=== PATIENT | female | born 1965 | race Caucasian/White ===

== ENCOUNTER → 2021-11-28 13:57 | Outpatient (BNVA) | payer SELFPAY | PROVIDERS: Visit Provider Family Medicine Adult Medicine | DX: R53.82 Chronic fatigue, unspecified (principal); R53.81 Other malaise; Z85.71 Personal history of Hodgkin lymphoma; Z85.3 Personal history of malignant neoplasm of breast | CPT/HCPCS: 80053; 83036; 84443; 85025 ==

== ENCOUNTER 2024-01-08 17:16 | Emergency (ER) | payer OTHER, MEDICAID, SELFPAY ==
[2024-01-08 17:38] VITALS: BP 128/81; PULSE 105; RESP 18; TEMP 36.8; O2SAT 98
[2024-01-08 17:58] VITALS: BP 128/81; PULSE 99; O2SAT 99
--- NOTE | 2024-01-08 18:06 | CTR_ITS ---
PROCEDURE INFORMATION: Exam: CT Cervical Spine Without Contrast Exam date and time: 01/08/2024 6:35 PM Age: 58 years old Clinical indication: Injury or trauma; Other: Fall, hit back of head, dizziness; Additional info: Trauma/fall TECHNIQUE: Imaging protocol: Computed tomography of the cervical spine without contrast. Radiation optimization: All CT scans at this facility use at least one of these dose optimization techniques: automated exposure control; mA and/or kV adjustment per patient size (includes targeted exams where dose is matched to clinical indication); or iterative reconstruction. COMPARISON: CT head wo con* [id number] 01/08/2024 6:35 PM RADIATION DOSE METRICS: Total DLP (mGy-cm): 362.2 FINDINGS: Bones/joints: Straightening of the normal cervical lordosis. Alignment is otherwise intact. Vertebral body heights are well-maintained. No evidence of acute fracture. Mild multilevel degenerative changes of the cervical spine worst at C4-C5. Lungs: Moderate biapical fibrotic changes. Thyroid: Multinodular right thyroid gland with low-density nodules measuring up to 1.5 cm. Soft tissues: Unremarkable. CT/CT cervical spin wo con* [id number] IMPRESSION: 1. No evidence of acute fracture. 2. Multinodular right thyroid gland with low-density nodules measuring up to 1.5 cm. Recommend nonemergent follow-up thyroid ultrasound. COMMENTS: Consistent with the [employer]'s Incidental Findings Committee white paper (J Am Anjum Radiol 2015): In patients aged 35 years and older with an incidental thyroid nodule equal to or greater than 1.[address], MRI or extrathyroidal US, further evaluation with dedicated thyroid US is recommended for patients with normal life expectancy and without comorbidities. For smaller nodules without suspicious features, no further evaluation or follow up is recommended.
--- NOTE | 2024-01-08 18:06 | CTR_ITS ---
PROCEDURE INFORMATION: Exam: CT Head Without Contrast Exam date and time: 01/08/2024 6:35 PM Age: 58 years old Clinical indication: Injury or trauma; Other: Fall, hit head, dizziness; Additional info: Trauma/fall TECHNIQUE: Imaging protocol: Computed tomography of the head without contrast. Radiation optimization: All CT scans at this facility use at least one of these dose optimization techniques: automated exposure control; mA and/or kV adjustment per patient size (includes targeted exams where dose is matched to clinical indication); or iterative reconstruction. COMPARISON: CT cervical spin wo con* [id number] 01/08/2024 6:35 PM RADIATION DOSE METRICS: Total DLP (mGy-cm): 901.3 FINDINGS: Brain: Normal. No hemorrhage. Unremarkable white matter. No mass effect. Cerebral ventricles: No ventriculomegaly. Paranasal sinuses: Partially visualized moderate right maxillary sinus disease. The paranasal sinuses are otherwise clear. Mastoid air cells: Visualized mastoid air cells are well aerated. Bones/joints: Unremarkable. No acute fracture. Soft tissues: Unremarkable. CT/CT head wo con* [id number] IMPRESSION: No evidence of acute intracranial pathology.
--- NOTE | 2024-01-08 18:07 | ED_ITS ---
HPI - Dizziness 2 General: Chief Complaint: Dizziness Stated Complaint: dr kaur, fall, hit head Time Seen by Provider: 01/08/24 18:05 History of Present Illness: HPI Narrative: 58-year-old female presents to the emerg ency department and states she was sent by her physician to the emergency department to be evaluated and received a CT scan of her head. She states that on December 31, 2023 she had an accidental fall where she fell backwards and hit her head on some wooden pallets. She denies loss of consciousness at that time. She does report intermittent dizziness with associated vomiting and chills since that time. She states that she has not had a fever or change in vision, she denies numbness or tingling to the extremities, she denies bowel or bladder retention or incontinence. Associated symptoms: Reports nausea Review of Systems 2 General: Reports: 10 or more systems reviewed and unremarkable except in HPI and below GI: Reports: nausea Neuro: Reports: dizziness and vertigo PFSH ED 2 PFSH: Medical History Ankle fracture, left Asthma Chronic fatigue and malaise CKD (chronic kidney disease) stage 2, GFR 60-89 ml/min History of Hodgkin's lymphoma Hx of [place] spotted fever HX: breast cancer Pre-diabetes Surgical History History of mastectomy, total Family History Mother Cancer Grandmother Cancer Social History Smoking and tobacco/nicotine status: never used tobacco/nicotine Alcohol intake: never Substance/Drug Use: never Lives independently: Yes Marital status: Life Partner Current occupational status: employed Physical Exam 2 Narrative: EXAM NARRATIVE: Constitutional: the patient appears well nourished and with normal development. Vital signs reviewed as documented. HENMT: Normocephalic, atraumatic. External ears normal appearance without drainage. Nose without drainage, normal appearance. Mucus membranes moist. Neck is supple, No jugular venous distension, trachea is midline, no appreciable carotid bruits. No lymphadenopathy. No meningeal signs. Flexion, extension and lateral rotation is without pain. Eyes: Pupils are equal, round, reactive to light and accommodation. No scleral icterus. Extra-ocular movement are intact. Thorax is symmetrical and with equal rise and fall with respirations. Resp: Lungs are clear to auscultation. No wheezes, rales, crackles or ronchi at present. Cardio: Regular rate and rhythm. Positive S1, S2. No appreciable murmurs, rubs or gallops. GI: Abdominal exam reveals normal bowel sounds to all quadrants. No organomegaly. No obvious palpable masses noted. No hepatomegally appreciated. Soft, non-tender to palpation. Extremity: Extremities are non-edematous and both femoral and pedal pulses are 2+ and equal bilaterally. Moves all extremities well, sensation in all extremities. Neuro: Alert and oriented x4, person, place, time and situation. Cranial nerves II through XII are grossly intact, there is no focal neurological deficits that I can appreciate at present. Sensation intact to all extremities. 2-point discrimination intact. Light touch intact to all extremities. Motor strength in the upper and lower extremities are equal and bilateral 5/5. Psych: Cooperative, calm, normal thought process, appropriate judgment. Skin: No lesions, rashes. No gross abnormalities noted. Back: Symmetrical, no obvious deformity, No CVA tenderness Course 2 Vital Signs: Vital signs: Vital Signs Temperature 98.2 F 01/08/24 17:38 Pulse Rate 95 01/08/24 19:39 Respiratory Rate 16 01/08/24 19:39 Blood Pressure 103/71 01/08/24 19:39 Pulse Oximetry 97 01/08/24 19:39 Oxygen Delivery Me thod Room Air 01/08/24 18:51 MDM - Dizziness Medical Decision Making Physical exam completed and documented I will obtain a CT scan of her head and cervical spine. Medical Records I reviewed the patient's medical records. Lab Data I reviewed the patient's lab results. 01/08/24 18:20 01/08/24 18:20 Radiology Impressions Cervical Spine CT 01/08/24 18:06 IMPRESSION: 1. No evidence of acute fracture. 2. Multinodular right thyroid gland with low-density nodules measuring up to 1.5 cm. Recommend nonemergent follow-up thyroid ultrasound. COMMENTS: Consistent with the [employer]'s Incidental Findings Committee white paper (J Am Anjum Radiol 2015): In patients aged 35 years and older with an incidental thyroid nodule equal to or greater than 1.[address], MRI or extrathyroidal US, further evaluation with dedicated thyroid US is recommended for patients with normal life expectancy and without comorbidities. For smaller nodules without suspicious features, no further evaluation or follow up is recommended. Head CT 01/08/24 18:06 IMPRESSION: No evidence of acute intracranial pathology. Laboratory Results WBC 12.30 10^3/uL (3.29-11.43) H 01/08/24 18:20 RBC 4.35 10^6/uL (3.85-5.65) 01/08/24 18:20 Hgb 11.50 g/dL (11.27-16.99) 01/08/24 18:20 Hct 36.5 % (36-47) 01/08/24 18:20 MCV 83.9 fl (85-98) L 01/08/24 18:20 MCH 26.4 pg (27-33) L 01/08/24 18:20 MCHC 31.5 g/dL (30-55) 01/08/24 18:20 RDW 14.9 % (12.1-15.1) 01/08/24 18:20 Plt Count 281 10^3/cmm (157-399) 01/08/24 18:20 MPV 12.0 fL (7.4-10.4) H 01/08/24 18:20 Neut % (Auto) 60.1 % 01/08/24 18:20 Lymph % (Auto) 26.3 % 01/08/24 18:20 [place] % (Auto) 8.8 % 01/08/24 18:20 Eos % (Auto) 3.7 % 01/08/24 18:20 Baso % (Auto) 0.8 % 01/08/24 18:20 Neut # (Auto) 7.39 10^3/uL (1.8-7.7) 01/08/24 18:20 Lymph # (Auto) 3.2 10^3/uL (0.8-4.8) 01/08/24 18:20 [place] # (Auto) 1.1 10^3/uL (0.2-0.9) H 01/08/24 18:20 Eos # (Auto) 0.5 10^3/uL (0.0-0.8) 01/08/24 18:20 Baso # (Auto) 0.1 10^3/uL (0.0-0.1) 01/08/24 18:20 Nucleated RBC % (auto) 0 % 01/08/24 18:20 Nucleated RBCs # 0.0 /100WBC 01/08/24 18:20 Sodium 135 mmol/L (136-145) L 01/08/24 18:20 Potassium 4.3 mmol/L (3.5-5.1) 01/08/24 18:20 Chloride 102 mmol/L (98-107) 01/08/24 18:20 Carbon Dioxide 23 mmol/L (22-29) 01/08/24 18:20 Anion Gap 14.3 (5-19) 01/08/24 18:20 BUN 26 mg/dL (6-20) H 01/08/24 18:20 Creatinine 1.1 mg/dL (0.5-0.9) H 01/08/24 18:20 GFR Calculation 51.4 mL/min (90-130) L 01/08/24 18:20 Glucose 83 mg/dL (65-115) 01/08/24 18:20 Calculated Osmolality 284 mOsm/kg (285-295) L 01/08/24 18:20 Calcium 9.1 mg/dL (8.5-10.5) 01/08/24 18:20 Total Bilirubin 0.2 mg/dL (0.15-1.2) 01/08/24 18:20 AST 17 U/L (0-32) 01/08/24 18:20 ALT 11 U/L (0-33) 01/08/24 18:20 Alkaline Phosphatase 69 U/L (35-105) 01/08/24 18:20 Total Protein 7.0 g/dL (6.6-8.7) 01/08/24 18:20 Albumin 3.7 g/dL (3.5-5.2) 01/08/24 18:20 Globulin 3.3 g/dL (1.3-4.6) 01/08/24 18:20 All radiology interpretation(s) finalized by discharge Discharge Plan Discharge Patient Disposition: Home Clinical Impression: Benign paroxysmal positional vertigo, Accidental fall Condition: Stable Prescriptions: New meclizine 25 mg tablet 25 mg PO DAILY PRN (Reason: dizziness) Qty: 30 0RF ondansetron HCl 4 mg tablet 4 mg PO Q12H 5 Days Qty: 10 0RF No Action prednisone 20 mg tablet 20 mg PO DAILY 5 Days Qty: 5 0RF albuterol sulfate [Ventolin HFA] 90 mcg/actuation HFA aerosol inhaler 2 puff inhalation Q6H PRN (Reason: shortness of breath or wheezing) Qty: 8.5 0RF azithromycin 250 mg tablet See Rx Instructions PO .COMPLEX Qty: 6 0RF Rx Instructions: take 500 mg today (day 1), then 250 mg for 4 days (days 2-5) PO Discharge Orders: Discharge ED (Routine); Ordered 01/08/24 Ordered By: Raymundo Frausto Referrals: Henry Cleary MD [Primary Care Provider] - Discharge Diet: Usual diet Discharge Activity: Resume usual activity Patient Instructions: Opioid Safety, Pain Management Activity Restrictions/Additional Instructions: Activity Restrictions/Additional Instructions: Thank you for choosing [facility] for your healthcare needs today. Please realize that you were seen in the Emergency Department and that we are providing you with an emergency medical screening exam and this may not be a complete and all inclusive of all the testing and or medical work-up that you may need to determine your ailment or severity of your illness. It is very important that you follow-up as instructed with your Primary care provider or Specialist for additional evaluation and to discuss your medical treatment plan. You may return to the Emergency Department should you have concerns or if your condition changes or worsens in any way. Coding Level of Care Code ED Stenotype Machine Operator for Cody Mak
[2024-01-08 18:40] LABS: Basophils # 0.1 10^3/uL (0.0-0.1); Basophils % 0.8 %; Eosinophils # 0.5 10^3/uL (0.0-0.8); Eosinophils % 3.7 %; Hematocrit 36.5 % (36-47); Lymphocytes # 3.2 10^3/uL (0.8-4.8); Lymphocytes % 26.3 %; Mean Corpuscular HGB Conc 31.5 g/dL (30-55); Mean Corpuscular Hemoglobin 26.4 pg (27-33); Mean Corpuscular Volume 83.9 fl (85-98); Monocytes # 1.1 10^3/uL (0.2-0.9); Monocytes % 8.8 %; Neutrophils # 7.39 10^3/uL (1.8-7.7); Neutrophils % 60.1 %; Nucleated Red Blood Cells % 0 %; Platelet Count 281 10^3/cmm (157-399); Red Blood Count 4.35 10^6/uL (3.85-5.65); Red Cell Distribution Width 14.9 % (12.1-15.1)
[2024-01-08 18:50] LABS: Alanine Aminotransferase 11 U/L (0-33); Albumin Level 3.7 g/dL (3.5-5.2); Alkaline Phosphatase 69 U/L (35-105); Anion Gap 14.3 (5-19); Aspartate Amino Transferase 17 U/L (0-32); Blood Urea Nitrogen 26 mg/dL (6-20); Calcium 9.1 mg/dL (8.5-10.5); Carbon Dioxide 23 mmol/L (22-29); Chloride 102 mmol/L (98-107); Creatinine Clr Calc Pharmacy 54.0884; Globulin 3.3 g/dL (1.3-4.6); Glomerular Filtration Rate 51.4 mL/min (90-130); Glucose 83 mg/dL (65-115); Osmolality Calculated 284 mOsm/kg (285-295); Potassium 4.3 mmol/L (3.5-5.1); Sodium 135 mmol/L (136-145); Total Bilirubin 0.2 mg/dL (0.15-1.2)
[2024-01-08 18:51] VITALS: BP 114/77; PULSE 95; O2SAT 98
[2024-01-08 19:39] VITALS: BP 103/71; PULSE 95; RESP 16; O2SAT 97
== END 2024-01-08 19:40 | disposition home or self-care (01) ==
PROVIDERS: Emergency Provider Internal Medicine; PCP Family Medicine Adult Medicine
DX: H81.10 Benign paroxysmal vertigo, unspecified ear (principal); N18.2 Chronic kidney disease, stage 2 (mild); Z85.71 Personal history of Hodgkin lymphoma; Z85.3 Personal history of malignant neoplasm of breast
CPT/HCPCS: 36415; 70450; 72125; 80053; 85025; 99284

== ENCOUNTER → 2025-09-04 09:43 | Outpatient (BNVA) | payer OTHER, MEDICAID, SELFPAY | PROVIDERS: PCP Family Medicine; Visit Provider Family Medicine | DX: E04.1 Nontoxic single thyroid nodule (principal) | CPT/HCPCS: 84439; 84443; 84480 ==

== ENCOUNTER 2025-10-02 12:21 | Outpatient (CLI) | payer OTHER, MEDICAID, SELFPAY ==
--- NOTE | 2025-10-02 16:30 | US_ITS ---
WS: [id number] THYROID ULTRASOUND HISTORY: nodules of right thyroid gland COMPARISON: None available. Right lobe: 1.7 cm x 2.5 cm x 4.2 cm (w x ap x l). Volume: 8.6 cm3. Thyroid is markedly enlarged. The numbers provided do not include the entire thyroid. This is a multilobulated gland with cystic and solid components. Increased vascularity throughout the gland. Solid nodule in the superior gland 1.4 x 1.2 x 1.3 cm. There is an additional nodule with central cystic component in the mid thyroid measuring 1.6 x 1.1 x 1.5 cm. Additional nodule in the lower pole 1.3 x 1.0 x 1.6 cm. There are no areas of increased echogenicity. Left lobe: 0.7 cm x 0.6 cm x 2.6 cm (w x ap x l). Volume: 0.5 cm3. Atrophic thyroid. Very poorly visualized thyroid. Isthmus: 0.3 cm. US/US thyroid [id number] IMPRESSION: 1. Enlarged, multinodular RIGHT thyroid. There are multiple nodules identified with increased vascularity. Suspect multinodular goiter. Attempted fine-needle aspiration by ultrasound guidance can be performed of some of these nodules. T I-RADS 4; moderately suspicious.
== END 2025-10-02 12:22 | disposition home or self-care (01) ==
LOC: RAD 12:23
PROVIDERS: PCP Family Medicine; Visit Provider Family Medicine
DX: E04.2 Nontoxic multinodular goiter (principal)
CPT/HCPCS: 76536; 87624